=== PATIENT | female | born 1960 | race Caucasian/White ===

== ENCOUNTER → 2019-04-30 | Day surgery (SDC) | payer OTHER ==
--- NOTE | 2019-04-27 16:20 | Diagnostic Imaging Report ---
Exam: KUB - 2 views Clinical History: Preoperative Comparison: None Findings: 11 mm right lower pole renal calculus. No other radiographically apparent renal calculi. Nonobstructive bowel gas pattern. No free air. The partially visualized lung bases are clear. The osseous structures appear unremarkable. Impression: 11 mm right lower pole renal calculus. Signed by: Giovani Hightower MD on 04/27/2019 4:16 PM
[~2019-04-30] MED LIST: FLOMAX0.4 MG PO; LEVOFLOXACIN 500MG/D5W 100ML 100 ML IV ONE; LIDOCAINE HCL 2% LOCAL INJ 5 ML SDV VIAL INJ ONE; METOPROLOL SUCC25 MG PO; MIDAZOLAM HCL 2 MG/2 ML VIAL ONE; MULTIVITAMINS1 EAC7 PO; PROPOFOL IV EMULSION 10 MG/ML 20 ML VIAL ONE; SEVOFLURANE INHAL SOLN 250 ML PEN BTL ONE
--- OUTSIDE RECORDS SUMMARY | 2019-04-30 06:13 | XMS REPORT ---
Author Author [facility] Address Unknown Phone Unavailable Care Team Providers Care Exhibit Builder Name Role Phone OYBANI GOMEZ Unavailable Unavailable Payers Payer Name Policy Type Policy Number Effective Date Expiration Date Problems This patient has no known problems. Allergies, Adverse Reactions, Alerts Allergy Name Allergy Type Status Severity Reaction(s) Onset Date Inactive Date Treating Clinician Comments Penicillins DA Active [place] 2017-12-18 00:00:00 codeine DA Active 2017-12-18 00:00:00 sulfamethoxazole DA Active [place] 2017-12-18 00:00:00 trimethoprim DA Active [place] 2017-12-18 00:00:00 tramadol DA Active 2017-12-18 00:00:00 Medications This patient has no known medications. Results Test Description Test Time Test Comments Text Results Atomic Results Result Comments ABDOMEN-1VIEW (KUB) 2019-04-27 16:15:[address] [address] Patient Name: SAM KIRKLAND MR #: [id number] : 1960 Age/Sex: 58/F Req #: [id number] Adm Physician: Ordered by: YOBANI GOMEZ MD Report #: [id number] Location: OR Room/Bed: Procedure: [id number] DX/ABDOMEN-1VIEW (KUB) Exam Date: 04/27/19 Exam Time: 1520 REPORT STATUS: Signed Exam: KUB - 2 views Clinical History: Preoperative Comparison: None Findings: 11 mm right lower pole renal calculus. No other radiographically apparent renal calculi. Nonobstructive bowel gas pattern. No free air. The partially visualized lung bases are clear. The osseous structures appear unremarkable. Impression: 11 mm right lower pole renal calculus. Signed by: Sanjiv Cisneros MD on 04/27/2019 4:16 PM Dictated By: SANJIV CISNEROS MD 15 Transcribed By: FERMÍN on 04/27/191615 COPY TO: YOBANI GOMEZ MD
[2019-04-30 09:15] VITALS: BP 104/60
--- NOTE | 2019-04-30 22:35 | Operative Report ---
DATE OF PROCEDURE: 04/30/2019 SURGEON: Vaughn Hdz MD PREOPERATIVE DIAGNOSIS: Right-sided kidney stone. POSTOPERATIVE DIAGNOSIS: Right-sided kidney stone. PROCEDURES: 1. Staged shock wave lithotripsy, right side. 2. Supervision of fluoroscopy. ANESTHESIA: General. ESTIMATED BLOOD LOSS: Minimal. COMPLICATIONS: None. INDICATIONS FOR PROCEDURE: Ms. Emmanuel is a very pleasant 58-year-old female with a history of intermittently symptomatic right-sided kidney stone. She and I had a long discussion about alternatives, risks and benefits of doing nothing, cystoscopy, ureteroscopy, shock wave lithotripsy, percutaneous surgery or open surgery. She voiced understanding of the options, alternatives, risks, and benefits and she elected to proceed. PROCEDURE IN DETAIL: After informed consent was obtained, the patient was taken to the operative suite, placed supine on the operating table, underwent general anesthesia by Anesthesia Service. The stone was localized in the X, Y, and Z planes. Treatment was performed per the treatment report. The patient tolerated the procedure well and was transported to the recovery room in excellent condition. Supervision of fluoroscopy: I was present for the entire procedure and supervised fluoroscopy. There was no radiologist present at any time. Vaughn Hdz MD ES/MODL /[id number]
== END | disposition home or self-care (01) ==
LOC: OR 05:52
PROVIDERS: ATTEND Urology
DX: N13.2 Hydronephrosis with renal and ureteral calculous obstruction (principal); G47.33 Obstructive sleep apnea (adult) (pediatric); I10 Essential (primary) hypertension; Z88.5 Allergy status to narcotic agent; Z88.0 Allergy status to penicillin; Z88.2 Allergy status to sulfonamides; Z88.8 Allergy status to other drugs, medicaments and biological substances; N39.0 Urinary tract infection, site not specified; R31.29 Other microscopic hematuria; Z01.810 Encounter for preprocedural cardiovascular examination
CPT/HCPCS: 50590; 74018; 93005; J1956; J2001; J2250; J2704

== ENCOUNTER → 2019-06-02 | Outpatient (CLI) | payer OTHER ==
[~2019-06-02] MED LIST changes: -LEVOFLOXACIN 500MG/D5W 100ML 100 ML IV ONE; -LIDOCAINE HCL 2% LOCAL INJ 5 ML SDV VIAL INJ ONE; -MIDAZOLAM HCL 2 MG/2 ML VIAL ONE; -PROPOFOL IV EMULSION 10 MG/ML 20 ML VIAL ONE; -SEVOFLURANE INHAL SOLN 250 ML PEN BTL ONE
--- NOTE | 2019-06-02 15:20 | Diagnostic Imaging Report ---
EXAM: ABDOMEN-1VIEW (KUB) DATE: 06/02/2019 1:55 PM INDICATION: Calculus of kidney COMPARISON: 04/27/2019 FINDINGS: Again identified is a 11 mm calculus projecting over the lower pole the right kidney. No new radiographically evident stones are identified. Bowel gas pattern appears nonobstructive. No intraperitoneal free air is appreciated. No acute osseous abnormalities identified. IMPRESSION: Stable appearing 11 mm right lower renal calculus. Signed by: Dr. Tray Edward MD on 06/02/2019 3:16 PM
== END ==
LOC: RAD 13:52
PROVIDERS: ATTEND Urology
DX: N20.0 Calculus of kidney (principal)
CPT/HCPCS: 74018

== ENCOUNTER → 2019-08-20 | Day surgery (SDC) | payer OTHER ==
--- NOTE | 2019-08-16 10:08 | Diagnostic Imaging Report ---
Abdomen, one view Clinical indication: Preoperative evaluation. Kidney calculus. Comparison: 07/14/2019 Impression: 7 mm calculus overlies the lower pole of the right kidney. No other renal calculi are identified. There are no acute osseous abnormalities. The bowel gas pattern is nonobstructive. Signed by: Dillon Perea MD on 08/16/2019 10:05 AM
[~2019-08-20] MED LIST changes: +ACETAMINOPHEN 1000 MG/100 ML IV ONE; +DEXAMETHASONE SOD PHOS INJ 4 MG/ML VIAL ONE; +EPHEDRINE SULFATE INJ 50 MG/10 ML SYR ONE; +FENTANYL CITRATE/PF 100MCG/2 ML INJ ONE; +IOPAMIDOL 300MG/ML 50ML INFUS..BTL IV ONE; +LEVOFLOXACIN 500MG/D5W 100ML 100 ML IV ONE; +LIDOCAINE HCL 2% LOCAL INJ 5 ML SDV VIAL INJ ONE; +MIDAZOLAM HCL 2 MG/2 ML VIAL ONE; +ONDANSETRON HCL INJ 2MG/ML 2ML 2 MG/ML VIAL ONE; +PROPOFOL IV EMULSION 10 MG/ML 20 ML VIAL ONE; +SEVOFLURANE INHAL SOLN 250 ML PEN BTL ONE
[2019-08-20 08:55] VITALS: BP 147/75
--- NOTE | 2019-08-20 16:23 | Operative Report ---
DATE OF PROCEDURE: 08/20/2019 SURGEON: Vaughn Hdz MD PREOPERATIVE DIAGNOSES: 1. Microscopic hematuria. 2. Right kidney stone. POSTOPERATIVE DIAGNOSES: 1. Microscopic hematuria. 2. Right kidney stone. PROCEDURES: 1. Cystourethroscopy with left ureteral catheterization, left retrograde pyelogram (separate procedure in a staged fashion for microscopic hematuria). 2. Cystourethroscopy with right ureteral catheterization and right retrograde pyelogram (separate procedure for microscopic hematuria in a staged fashion). 3. Staged shock wave lithotripsy right side. 4. Supervision of fluoroscopy. 5. Interpretation of retrograde pyelography. ANESTHESIA: General. ESTIMATED BLOOD LOSS: Minimal. COMPLICATIONS: None. INDICATIONS: Ms. Emmanuel is a very pleasant 59-year-old female with a history of symptomatic right-sided kidney stone. She and I had a long discussion of alternatives, risks, and benefits of doing nothing, cystoscopy, IVP, retrograde pyelograms, shock wave lithotripsy. She voiced understanding of the options, alternatives, risks, and benefits and elected to proceed. PROCEDURE IN DETAIL: After informed consent was obtained, the patient was taken to the operative suite, placed supine on the operating table, underwent general anesthesia by Anesthesia Service. The patient was placed in dorsal lithotomy position, sterilely prepped and draped for cystoscopy. A 21-Persian cystoscope was inserted per urethra. Normal urethra was noted. Panendoscopy of the bladder revealed no tumors, no stones. Both ureteral orifices were in normal anatomic location and position and were seen to efflux clear urine. Bilateral retrograde pyelogram was performed, which were normal on the fluoroscopy with the exception of a large 1.2 cm lower pole stone on the right side. The stone was localized in the X, Y, and Z planes. A total of 3000 shocks on maximum power setting of 6 were delivered to the stone. The patient tolerated the procedure well and was transported to the recovery room in excellent condition. Supervision of fluoroscopy and interpretation ventriculography: I was present for the entire procedure and supervised fluoroscopy. There was no radiologist present. Attention was turned to the left and right ureters, which were catheterized and retrograde pyelogram performed revealing delicate ureters, delicate pelvocaliceal systems. Show abnormality on the right side was 1.2 cm lower pole stone. MD ALMA Miranda/MODL /[id number]
== END | disposition home or self-care (01) ==
LOC: OR 05:19
PROVIDERS: ATTEND Urology
DX: N20.0 Calculus of kidney (principal); N39.0 Urinary tract infection, site not specified; I10 Essential (primary) hypertension; Z88.6 Allergy status to analgesic agent; Z88.1 Allergy status to other antibiotic agents; Z88.0 Allergy status to penicillin; Z01.810 Encounter for preprocedural cardiovascular examination; Z87.891 Personal history of nicotine dependence
CPT/HCPCS: 50590; 74018; 93005; C1758; J0131; J1100; J1956; J2001; J2250; J2405; J2704; J3010; Q9967